=== PATIENT | male | born 1950 | race Caucasian/White ===

== ENCOUNTER 2016-04-07 16:17 | Outpatient (CLI) | payer MEDICARE ==
[2016-04-07 17:07] LABS: ABG SOURCE Arterial; BE(B) 4.5 mmol/L (-3.0-3.0); FIO2 21; HCO3 29.2 mmol/L (20.0-26.0); pH 7.44 (7.35-7.45)
== END 2016-04-07 17:17 | disposition home or self-care (01) ==
LOC: LAB 16:17
PROVIDERS: ATTEND Internal Medicine
DX: J44.9 Chronic obstructive pulmonary disease, unspecified (principal)
CPT/HCPCS: 36600-90; 82803-TC